=== PATIENT | female | born 1955 | race Caucasian/White ===

== ENCOUNTER 2016-09-03 10:49 | Inpatient (IN) | payer OTHER ==
[2016-09-03] MEDS ORDERED: ONDANSETRON 4 MG/2 ML VIAL IVPUSH ONE ×2 (13:06→16:33)
[2016-09-03] MEDS ORDERED: SODIUM CHLORIDE 1,000 ML IV STA ×2 (13:06→16:33)
--- NOTE | 2016-09-03 13:06 | PDOC ---
History of Present Illness - General History Source: Patient Exam Limitations: No Limitations - History of Present Illness Initial Comments: 09/03/16 13:11 The patient is a 61-kane-old woman with a significant past medical history of cerebral palsy, asthma, hypercholesterolemia and thyroid disease who presents to the emergency department via walk-in for further evaluation of persistent vomiting. No fever, chills, generalized weakness. No new foods. Patients states she suddenly started to vomit persistently for the past 2 days. She reports associated symptoms of epigastric discomfort and decreases po intake, secondary to emesis. She denies fever, chills, chest pain, shortness of breath, cough Allergies: Penicillin Past Surgical History: Left wrist and ankle fusion Social History: Former smoker (quit approximately 20 years ago). No ETOH and recreational drug use. Primary Care Physician: Dr. Alice Gooden [phone] <Juanita Araiza - Last Filed: 09/03/16 16:26> <Lexus Rajan - Last Filed: 09/04/16 09:40> - General Chief Complaint: Nausea/Vomiting Stated Complaint: VOMITING Time Seen by Provider: 09/03/16 13:03 Past History <Juanita Araiza - Last Filed: 09/03/16 16:26> - Past Medical History Asthma: Yes Thyroid Disease: Yes (TAKING SYNTHROID) Other medical history: CEREBRAL PALSY - Surgical History Orthopedic Surgery: Yes (LEFT WRIST & ANKLE FUSED) - Psycho/Social/Smoking Cessation Hx Anxiety: No Suicidal Ideation: No Smoking Status: No Smoking History: Never smoked Have you smoked in the past 12 months: No Number of Cigarettes Smoked Daily: 0 If you are a former smoker, when did you quit?: 20YRS AGO Information on smoking cessation initiated: No Hx Alcohol Use: No Drug/Substance Use Hx: No Substance Use Type: None Hx Substance Use Treatment: No <Lexus Rajan - Last Filed: 09/04/16 09:40> - Past Medical History Allergies/Adverse Reactions: Allergies Allergy/AdvReac Type Severity Reaction Status Date / Time Penicillins Allergy Severe Difficulty Verified 09/03/16 10:56 Breathing Home Medications: Ambulatory Orders Levothyroxine [Synthroid -] 100 mcg PO DAILY 03/24/13 Montelukast Na [Singulair -] 10 mg PO HS 03/24/13 Topiramate [Topamax] 50 mg PO BID 02/13/14 Albuterol Sulfate Inhaler - [Ventolin HFA Inhaler -] 1 - 2 inh PO Q4HWA PRN #1 09/26/15 Ondansetron [Zofran -] 4 mg PO TID PRN #21 tablet 09/03/16 Rosuvastatin Calcium [Crestor] 10 mg PO DAILY 09/03/16 Review of Systems - Review of Systems Able to Perform ROS?: Yes Comments:: 09/03/16 13:11 GENERAL/CONSTITUTIONAL: No fever or chills. No weakness. HEAD, EYES, EARS, NOSE AND THROAT: No change in vision. No ear pain or discharge. No sore throat. CARDIOVASCULAR: No chest pain or shortness of breath. RESPIRATORY: No cough, wheezing, or hemoptysis. GASTROINTESTINAL: Yes: Epigastric discomfort. +Nausea. +vomiting No diarrhea or constipation. GENITOURINARY: No dysuria, frequency, or change in urination. MUSCULOSKELETAL: No joint or muscle swelling or pain. No neck or back pain. SKIN: No rash NEUROLOGIC: No headache, vertigo, loss of consciousness, or change in strength/ sensation. ENDOCRINE: No increased thirst. No abnormal weight change. HEMATOLOGIC/LYMPHATIC: No anemia, easy bleeding, or history of blood clots. ALLERGIC/IMMUNOLOGIC: No hives or skin allergy. <Juanita Araiza - Last Filed: 09/03/16 16:26> *Physical Exam - Vital Signs Last Vital Signs Temp Pulse Resp BP Pulse Ox 97.9 F 106 H 18 134/104 98 09/03/16 10:55 09/03/16 10:55 09/03/16 10:55 09/03/16 10:55 09/03/16 10:55 - Physical Exam Comments: 09/03/16 13:11 GENERAL: Awake, alert, and fully oriented, in no acute distress HEAD: No signs of trauma EYES: PERRLA, EOMI, sclera anicteric, conjunctiva clear ENT: Auricles normal inspection, hearing grossly normal, nares patent, oropharynx clear without exudates. Dry mucosa NECK: Normal ROM, supple, no lymphadenopathy, JVD, or masses LUNGS: Breath sounds equal, clear to auscultation bilaterally. No wheezes, and no crackles HEART: Regular rate and rhythm, normal S1 and S2, no murmurs, rubs or gallops ABDOMEN: Soft, nontender, normoactive bowel sounds. No guarding, no rebound. No masses EXTREMITIES: Normal range of motion, no edema. No clubbing or cyanosis. No cords, erythema, or tenderness NEUROLOGICAL: Cranial nerves II through XII grossly intact. Normal speech, normal gait <Juanita Araiza - Last Filed: 09/03/16 16:26> - Vital Signs Last Vital Signs Temp Pulse Resp BP Pulse Ox 97.9 F 106 H 18 134/104 98 09/03/16 10:55 09/03/16 10:55 09/03/16 10:55 09/03/16 10:55 09/03/16 10:55 <Lexus Rajan - Last Filed: 09/04/16 09:40> ED Treatment Course - LABORATORY CBC & Chemistry Diagram: 09/03/16 13:06 09/03/16 13:06 - RADIOLOGY Radiograph Interpretation: 09/03/16 16:26 EXAM: CT/SPIRAL- RENAL-STONE CT IMPRESSION: Sequential axial images were obtained from the domes of the diaphragm through the symphysis pubis utilizing urinary tract calculi protocol. The lung bases are clear. There is no evidence of calcifications within the kidneys, ureters or urinary bladder suspicious for urinary tract calculi. There is no evidence of hydronephrosis or obstructive uropathy. No significant abnormalities of the liver, spleen, pancreas, or right adrenal gland were identified. There is a 1.8 cm nodule within the left adrenal that most likely represents a benign adenoma. The gallbladder is clear. There is no evidence of intra-abdominal, retroperitoneal or pelvic mass lesions, fluid collections or lymphadenopathy. There is no evidence of acute bony pathology. <Juanita Araiza - Last Filed: 09/03/16 16:26> - LABORATORY CBC & Chemistry Diagram: 09/04/16 06:15 09/04/16 06:15 <Lexus Rajan - Last Filed: 09/04/16 09:40> Medical Decision Making - Medical Decision Making 09/03/16 16:41 Patient was offered a PO challenge, was able to swallow some juice, but immediately felt nauseated. Unable to tolerate crackers. No acute findings on CT. D/w Dr. Garcia, covering Dr. Gooden, will place on observation. <Lexus Rajan - Last Filed: 09/04/16 09:40> *DC/Admit/Observation/Transfer <Juanita Araiza - Last Filed: 09/03/16 16:26> - Discharge Dispostion Admit: Yes <Lexus Rajan - Last Filed: 09/04/16 09:40> Diagnosis at time of Disposition: Nausea and vomiting Qualifiers: Vomiting type: unspecified Vomiting Intractability: non-intractable Qualified Code(s): R11.2 - Nausea with vomiting, unspecified - Discharge Dispostion Condition at time of disposition: Improved - Prescriptions - Referrals - Patient Instructions
[2016-09-03] MEDS ORDERED: ONDANSETRON 4 MG/2 ML VIAL ONE ×2 (13:14→16:39)
[2016-09-03 13:21] LABS: BASOPHIL 1.5 % (0-2.0); EOSINOPHIL 0.2 % (0-4.5); MCH 30.1 pg (25.7-33.7); MCHC 34.2 g/dl (32.0-36.0); MEAN CELL VOLUME 87.9 fl (80-96); MEAN PLT VOLUME 9.3 fl (7.5-11.1); NEUTROPHILS 85.9 % (42.8-82.8); PLATELET COUNT 204 K/MM3 (134-434); WHITE BLOOD COUNT 9.3 K/mm3 (4.0-10.0)
[2016-09-03 14:05] LABS: ALBUMIN 4.6 g/dl (3.4-5.0); ALK PHOS 109 U/L (45-117); ANION GAP 13 (8-16); BILIRUBIN,TOTAL 0.2 mg/dL (0.2-1.0); CALCIUM 9.3 mg/dL (8.5-10.1); CO2 24 mmol/L (21-32); CREATININE 0.8 mg/dL (0.55-1.02); GLUCOSE,RANDOM 106 mg/dL (74-106); SGOT/AST 14 U/L (15-37); SGPT/ALT 24 U/L (12-78); TOT PROT 7.9 g/dl (6.4-8.2)
[2016-09-03] MEDS ORDERED: ACETAMINOPHEN 1000 MG/100 ML VIAL (NON FORMULARY) IVPB ONE (14:46)
[2016-09-03] MEDS ORDERED: ACETAMINOPHEN INJECTION 100 ML IVPB ONE (14:51)
[2016-09-03 15:13] LABS: URINE APPEARANCE CLEAR; URINE BILIRUBIN NEGATIVE (NEGATIVE); URINE COLOR YELLOW; URINE GLUCOSE (UA) 1+ (NEGATIVE); URINE KETONE 2+ (NEGATIVE); URINE LEUK ESTERASE NEGATIVE (NEGATIVE); URINE NITRITE NEGATIVE (NEGATIVE); URINE UROBILINOGEN NEGATIVE E.U./dl (0.2-1.0)
[2016-09-03 15:22] LABS: URINE BLOOD 2+ (NEGATIVE); URINE PROTEIN 2+ (NEGATIVE)
[2016-09-03 15:27] LABS: URINE MUCUS RARE; URINE RBC 13 /hpf (0-3); URINE WBC 4 /hpf (3-5)
[2016-09-03] MEDS ORDERED: ALBUTEROL SO4 6.7 GM HFA INHALER IH PRN (17:12)
[2016-09-03] MEDS ORDERED: ONDANSETRON 4 MG/2 ML VIAL IVPUSH PRN (17:13)
[2016-09-03] MEDS ORDERED: PANTOPRAZOLE SODIUM 40 MG in SODIUM CHLORIDE 100 ML IVPB SCH (17:15)
[2016-09-03] MEDS ORDERED: PANTOPRAZOLE SODIUM 100 ML IVPB ONE (18:29)
[2016-09-03] MEDS: PANTOPRAZOLE SODIUM 40 MG/100 ML PRE-DOCKED IVPB SCH (18:32)
[2016-09-03] MEDS: ACETAMINOPHEN 325 MG TABLET (FP) PO PRN (19:53)
[2016-09-03] MEDS: D5-1/2NS+10 MEQ KCL - 1,000 ML IV SCH (19:56)
[2016-09-03 20:06] VITALS: BMI 28.1
[2016-09-03] MEDS ORDERED: PATIENT'S OWN MEDICATION (NON-FORMULARY) (Topiramate [Topamax] 50 MG) PO SCH (22:00)
[2016-09-03] MEDS: TOPIRAMATE 25 MG TABLET (FP) PO SCH (22:31)
[2016-09-03] MEDS: MONTELUKAST NA 10 MG TABLET PO SCH (22:31)
[2016-09-04] MEDS: ACETAMINOPHEN 325 MG TABLET (FP) PO PRN ×2 (02:49→09:11)
[2016-09-04] MEDS: LEVOTHYROXINE NA 100 MCG TABLET (FP) PO SCH (06:20)
[2016-09-04] MEDS: D5-1/2NS+10 MEQ KCL - 1,000 ML IV SCH ×2 (06:21→19:00)
[2016-09-04 07:32] LABS: BASOPHIL 0.4 % (0-2.0); EOSINOPHIL 0.6 % (0-4.5); MCHC 34.1 g/dl (32.0-36.0); MEAN CELL VOLUME 88.1 fl (80-96); MEAN PLT VOLUME 9.7 fl (7.5-11.1); NEUTROPHILS 63.7 % (42.8-82.8); PLATELET COUNT 187 K/MM3 (134-434); RDW 12.8 % (11.6-15.6); WHITE BLOOD COUNT 9.8 K/mm3 (4.0-10.0)
[2016-09-04 08:52] LABS: ALBUMIN 3.7 g/dl (3.4-5.0); ALK PHOS 80 U/L (45-117); ANION GAP 13 (8-16); BILIRUBIN,TOTAL 0.4 mg/dL (0.2-1.0); CALCIUM 8.4 mg/dL (8.5-10.1); CO2 22 mmol/L (21-32); CREATININE 0.7 mg/dL (0.55-1.02); GLUCOSE,RANDOM 102 mg/dL (74-106); MAGNESIUM 2.1 mg/dL (1.8-2.4); SGOT/AST 13 U/L (15-37); SGPT/ALT 19 U/L (12-78); TOT PROT 6.3 g/dl (6.4-8.2)
[2016-09-04] MEDS: TOPIRAMATE 25 MG TABLET (FP) PO SCH ×2 (09:10→21:36)
[2016-09-04] MEDS: PANTOPRAZOLE SODIUM 40 MG/100 ML PRE-DOCKED IVPB SCH (09:12)
--- NOTE | 2016-09-04 11:53 | HP ---
Admitting History and Physical - Primary Care Physician PCP: Alice Gooden - Admission Chief Complaint: nausea, vomitig, headaches History of Present Illness: ER HISTORY - History of Present Illness Initial Comments: 09/03/16 13:11 The patient is a 61-year-old woman with a significant past medical history of cerebral palsy, asthma, hypercholesterolemia and thyroid disease who presents to the emergency department via walk-in for further evaluation of persistent vomiting. No fever, chills, generalized weakness. No new foods. Patients states she suddenly started to vomit persistently for the past 2 days. She reports associated symptoms of epigastric discomfort and decreases po intake, secondary to emesis. She denies fever, chills, chest pain, shortness of breath, cough Allergies: Penicillin Past Surgical History: Left wrist and ankle fusion Social History: Former smoker (quit approximately 20 years ago). No ETOH and recreational drug use. Primary Care Physician: Dr. Alice Gooden [phone] PT examined by me in the floors -- has a severe headache-- throbbing right side of forehead- has nausea . 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) Cardiovascular: Yes: Hyperlipdemia Pulmonary: Yes: Asthma - Smoking History Smoking history: Never smoked Have you smoked in the past 12 months: No Aproximately how many cigarettes per day: 0 If you are a former smoker, when did you quit?: 20YRS AGO - Alcohol/Substance Use Hx Alcohol Use: No - Social History ADL: Independent History of Recent Travel: No Home Medications - Allergies Allergies/Adverse Reactions: Allergies Allergy/AdvReac Type Severity Reaction Status Date / Time Penicillins Allergy Severe Difficulty Verified 09/03/16 10:56 Breathing - Home Medications Home Medications: Ambulatory Orders Levothyroxine [Synthroid -] 100 mcg PO DAILY 03/24/13 Montelukast Na [Singulair -] 10 mg PO HS 03/24/13 Topiramate [Topamax] 50 mg PO BID 02/13/14 Albuterol Sulfate Inhaler - [Ventolin HFA Inhaler -] 1 - 2 inh PO Q4HWA PRN #1 09/26/15 Ondansetron [Zofran -] 4 mg PO TID PRN #21 tablet 09/03/16 Rosuvastatin Calcium [Crestor] 10 mg PO DAILY 09/03/16 Review of Systems - Review of Systems Constitutional: denies: Chills, Fever, Loss of Appetite Eyes: denies: Blurred Vision, Eye Pain, Floaters Gastrointestinal: reports: Nausea, Vomiting. denies: Abdominal Pain Neurological: reports: Headache. denies: Dizziness, Weakness Physical Examination Vital Signs: Vital Signs Temperature 98.6 F 09/04/16 09:07 Pulse Rate 94 H 09/04/16 09:07 Respiratory Rate 20 09/04/16 09:07 Blood Pressure 131/79 09/04/16 09:07 O2 Sat by Pulse Oximetry (%) 98 09/04/16 04:37 Constitutional: Yes: No Distress Cardiovascular: Yes: Regular Rate and Rhythm Respiratory: Yes: CTA Bilaterally Gastrointestinal: Yes: Normal Bowel Sounds, Soft. No: Distention, Tenderness Edema: No Labs: CBC, BMP 09/04/16 06:15 09/04/16 06:15 Imaging - Results Cat Scan: Report Reviewed EKG: Image Reviewed (NSR) Problem List - Problems (1) Nausea and vomiting Code(s): R11.2 - NAUSEA WITH VOMITING, UNSPECIFIED Qualifiers: Vomiting type: unspecified Vomiting Intractability: non-intractable Qualified Code(s): R11.2 - Nausea with vomiting, unspecified (2) Migraine Code(s): G43.909 - MIGRAINE, UNSP, NOT INTRACTABLE, WITHOUT STATUS MIGRAINOSUS Assessment/Plan PLAN -- CT head negative for acute changes -- iv fluids -- monitor lytes -- Neurology evaluation -- clear liquids -- DVT prophylaxis-- Lovenox -- on Topomax
[2016-09-04] MEDS: ACETAMINOPHEN/CAFFEINE/BUTALBITAL 1 TAB PO PRN (13:47)
--- NOTE | 2016-09-04 14:03 | CONSULT ---
Consult Consult Specialty:: Neurology Reason for Consultation:: Headache - History of Present Illness Chief Complaint: Headache History of Present Illness: 61 year old woman with history chronic migraine (currently on topamax 50 bid and well controlled, patient of Dr Ryan), cerebral palsy with chronic left arm weakness, asthma and hypercholesterolemia, presents to the emergency due to vomiting. Patient reports a two day history of vomiting, which is currently being investigated. Due to vomiting, she was unable to keep down her topamax and notes new onset headache. Reports right sided, sharp, over the right eye, associated with nausea, vomiting, photo/phonophobia. Typical of her usual headache. 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) Pulmonary: Yes: Asthma - Smoking History Smoking history: Never smoked Have you smoked in the past 12 months: No Aproximately how many cigarettes per day: 0 If you are a former smoker, when did you quit?: 20YRS AGO - Social History ADL: Independent History of Recent Travel: No Home Medications - Allergies Allergies/Adverse Reactions: Allergies Allergy/AdvReac Type Severity Reaction Status Date / Time Penicillins Allergy Severe Difficulty Verified 09/03/16 10:56 Breathing - Home Medications Home Medications: Ambulatory Orders Levothyroxine [Synthroid -] 100 mcg PO DAILY 03/24/13 Montelukast Na [Singulair -] 10 mg PO HS 03/24/13 Topiramate [Topamax] 50 mg PO BID 02/13/14 Albuterol Sulfate Inhaler - [Ventolin HFA Inhaler -] 1 - 2 inh PO Q4HWA PRN #1 09/26/15 Ondansetron [Zofran -] 4 mg PO TID PRN #21 tablet 09/03/16 Rosuvastatin Calcium [Crestor] 10 mg PO DAILY 09/03/16 Review of Systems - Review of Systems Constitutional: reports: Loss of Appetite Eyes: reports: No Symptoms HENT: reports: No Symptoms Neck: reports: No Symptoms Cardiovascular: reports: No Symptoms Respiratory: reports: No Symptoms Gastrointestinal: reports: Vomiting Neurological: reports: Headache Physical Exam Vital Signs: Vital Signs Temperature 98.6 F 09/04/16 09:07 Pulse Rate 94 H 09/04/16 09:07 Respiratory Rate 20 09/04/16 09:07 Blood Pressure 131/79 09/04/16 09:07 O2 Sat by Pulse Oximetry (%) 98 09/04/16 04:37 Constitutional: Yes: Anxious Eyes: Yes: Conjunctiva Clear, EOM Intact HENT: Yes: Atraumatic, Normocephalic Neurological: Yes: Alert, Oriented, Cran Nerves II-XII Intact (chronic left arm weakness, no drift in remainder) Labs: CBC, BMP 09/04/16 06:15 09/04/16 06:15 Problem List - Problems (1) Cerebral palsy Code(s): G80.9 - CEREBRAL PALSY, UNSPECIFIED (2) Nausea and vomiting Code(s): R11.2 - NAUSEA WITH VOMITING, UNSPECIFIED Qualifiers: Vomiting type: unspecified Vomiting Intractability: non-intractable Qualified Code(s): R11.2 - Nausea with vomiting, unspecified (3) Knee injuries Code(s): S89.90XA - UNSPECIFIED INJURY OF UNSPECIFIED LOWER LEG, INIT ENCNTR Assessment/Plan 61 year old woman with history chronic migraine (currently on topamax 50 bid and well controlled, patient of Dr Gorman), cerebral palsy with chronic left arm weakness, asthma and hypercholesterolemia, presents to the emergency due to vomiting. Patient reports a two day history of vomiting, which is currently being investigated. Due to vomiting, she was unable to keep down her topamax and notes new onset headache. Reports right sided, sharp, over the right eye, associated with nausea, vomiting, photo/phonophobia. Typical of her usual headache. Impression Migraine without aura, exacerbated by underlying illness CT head results pending Patient received fiorocet Would continue topamax at current dose Patient would like to be followed by Dr Gorman her outpatient neurologist starting Tuesday
[2016-09-04] MEDS: ROSUVASTATIN CA 10 MG TABLET (FP) PO SCH (21:36)
[2016-09-04] MEDS: MONTELUKAST NA 10 MG TABLET PO SCH (21:36)
[2016-09-04] MEDS: MAG HYDROX/AL HYDROX/SIMETH 30 ML UNIT-DOSE CUP PO PRN (22:16)
[2016-09-05] MEDS: D5-1/2NS+10 MEQ KCL - 1,000 ML IV SCH ×3 (05:39→17:54)
[2016-09-05] MEDS: LEVOTHYROXINE NA 100 MCG TABLET (FP) PO SCH (06:08)
[2016-09-05] MEDS: ENOXAPARIN NA (PORCINE) 40 MG/0.4 ML DISP.SYRIN SQ SCH (09:04)
[2016-09-05] MEDS: ACETAMINOPHEN/CAFFEINE/BUTALBITAL 1 TAB PO PRN ×2 (09:04→12:58)
[2016-09-05] MEDS: PANTOPRAZOLE SODIUM 40 MG/100 ML PRE-DOCKED IVPB SCH (09:04)
[2016-09-05] MEDS: TOPIRAMATE 25 MG TABLET (FP) PO SCH ×2 (09:04→21:44)
--- NOTE | 2016-09-05 10:16 | PN ---
Progress Note, Physician Chief Complaint: still nauseous, has persistent headaches no abd pain - Current Medication List Current Medications: Active Medications Acetaminophen (Tylenol -) 650 mg PO Q6H PRN PRN Reason: FEVER OR PAIN Last Admin: 09/04/16 09:11 Dose: 650 mg Acetaminophen/Butalbital/Caffeine (Fioricet -) 1 tablet PO Q4H PRN PRN Reason: FEVER OR PAIN Last Admin: 09/05/16 09:04 Dose: 1 tablet Al Hydroxide/Mg Hydroxide (Mylanta Oral Suspension -) 15 ml PO Q6H PRN PRN Reason: INDIGESTION Last Admin: 09/04/16 22:16 Dose: 15 ml Albuterol Sulfate (Ventolin Hfa Inhaler -) 2 puff IH Q4H PRN PRN Reason: ASTHMA Enoxaparin Sodium (Lovenox -) 40 mg SQ DAILY [facility] Last Admin: 09/05/16 09:04 Dose: 40 mg Potassium Chloride/Dextrose/Sod Cl (D5-1/2ns+10 Meq Kcl -) 1,000 mls @ 100 mls/ hr IV ASDIR [facility] Last Admin: 09/05/16 05:39 Dose: 100 mls/hr Levothyroxine Sodium (Synthroid -) 100 mcg PO DAILY@0700 [facility] Last Admin: 09/05/16 06:08 Dose: 100 mcg Montelukast Sodium (Singulair -) 10 mg PO [facility] Last Admin: 09/04/16 21:36 Dose: 10 mg Pantoprazole Sodium (Protonix 40mg Ivpb (Pre-Docked)) 40 mg IVPB DAILY [facility] Last Admin: 09/05/16 09:04 Dose: 40 mg Rosuvastatin Calcium (Crestor -) 10 mg PO [facility] Last Admin: 09/04/16 21:36 Dose: 10 mg Topiramate (Topamax -) 50 mg PO BID [facility] Last Admin: 09/05/16 09:04 Dose: 50 mg - Objective Vital Signs: Vital Signs Temperature 98.6 F 09/05/16 09:02 Pulse Rate 81 09/05/16 09:02 Respiratory Rate 20 09/05/16 09:02 Blood Pressure 127/74 09/05/16 09:02 O2 Sat by Pulse Oximetry (%) 93 L 09/04/16 20:00 Constitutional: Yes: No Distress Cardiovascular: Yes: Regular Rate and Rhythm Respiratory: Yes: CTA Bilaterally Gastrointestinal: Yes: Normal Bowel Sounds, Soft. No: Distention, Tenderness Edema: No Labs: CBC, BMP 09/04/16 06:15 09/04/16 06:15 Problem List - Problems (1) Migraine Code(s): G43.909 - MIGRAINE, UNSP, NOT INTRACTABLE, WITHOUT STATUS MIGRAINOSUS (2) Nausea and vomiting Code(s): R11.2 - NAUSEA WITH VOMITING, UNSPECIFIED Qualifiers: Vomiting type: unspecified Vomiting Intractability: non-intractable Qualified Code(s): R11.2 - Nausea with vomiting, unspecified Assessment/Plan PLAN -- CT head negative for acute changes -- iv fluids -- continue -- advance diet -- monitor lytes -- Neurology evaluation appreciated -- full liquids -- DVT prophylaxis-- Lovenox -- pt still needs iv fluids to prevent dehydration as she continues to be nauseous and has headaches -- on Topomax
[2016-09-05] MEDS ORDERED: TOPIRAMATE 25 MG TABLET (FP) PO ONE (12:33)
--- NOTE | 2016-09-05 12:37 | PN ---
Progress Note (short form) - Note Progress Note: History of Present Illness: 09/05 Patient seen and examined Reports relief from fiorcet yesterday, noting breakthrough pain today CT head complete chronic right frontal stroke, findings discussed with patient 61 year old woman with history chronic migraine (currently on topamax 50 bid and well controlled, patient of Dr Ryan), cerebral palsy with chronic left arm weakness, asthma and hypercholesterolemia, presents to the emergency due to vomiting. Patient reports a two day history of vomiting, which is currently being investigated. Due to vomiting, she was unable to keep down her topamax and notes new onset headache. Reports right sided, sharp, over the right eye, associated with nausea, vomiting, photo/phonophobia. Typical of her usual headache. 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) Pulmonary: Yes: Asthma - Smoking History Smoking history: Never smoked Have you smoked in the past 12 months: No Aproximately how many cigarettes per day: 0 If you are a former smoker, when did you quit?: 20YRS AGO - Social History ADL: Independent History of Recent Travel: No Home Medications - Allergies Allergies/Adverse Reactions: Allergies Allergy/AdvReac Type Severity Reaction Status Date / Time Penicillins Allergy Severe Difficulty Verified 09/03/16 10:56 Breathing - Home Medications Home Medications: Ambulatory Orders Levothyroxine [Synthroid -] 100 mcg PO DAILY 03/24/13 Montelukast Na [Singulair -] 10 mg PO HS 03/24/13 Topiramate [Topamax] 50 mg PO BID 02/13/14 Albuterol Sulfate Inhaler - [Ventolin HFA Inhaler -] 1 - 2 inh PO Q4HWA PRN #1 09/26/15 Ondansetron [Zofran -] 4 mg PO TID PRN #21 tablet 09/03/16 Rosuvastatin Calcium [Crestor] 10 mg PO DAILY 09/03/16 Review of Systems - Review of Systems Constitutional: reports: Loss of Appetite Eyes: reports: No Symptoms HENT: reports: No Symptoms Neck: reports: No Symptoms Cardiovascular: reports: No Symptoms Respiratory: reports: No Symptoms Gastrointestinal: reports: Vomiting Neurological: reports: Headache Physical Exam Constitutional: Yes: Anxious Eyes: Yes: Conjunctiva Clear, EOM Intact HENT: Yes: Atraumatic, Normocephalic Neurological: Yes: Alert, Oriented, Cran Nerves II-XII Intact (chronic left arm weakness, no drift in remainder) Problem List - Problems (1) Cerebral palsy Code(s): G80.9 - CEREBRAL PALSY, UNSPECIFIED (2) Nausea and vomiting Code(s): R11.2 - NAUSEA WITH VOMITING, UNSPECIFIED Qualifiers: Vomiting type: unspecified Vomiting Intractability: non-intractable Qualified Code(s): R11.2 - Nausea with vomiting, unspecified (3) Knee injuries Code(s): S89.90XA - UNSPECIFIED INJURY OF UNSPECIFIED LOWER LEG, INIT ENCNTR Assessment/Plan 61 year old woman with history chronic migraine (currently on topamax 50 bid and well controlled, patient of Dr Gorman), cerebral palsy with chronic left arm weakness, asthma and hypercholesterolemia, presents to the emergency due to vomiting. Neurology consulted for headache. CT head complete chronic right frontal stroke Impression Migraine without aura, exacerbated by underlying illness Patient received fiorocet, some improvement yesterday Will give x1 dose topamax 25 mg now Would continue topamax at current dose 50 mg bid Patient would like her outpatient neurologist to be contracted for further care starting tuesday, Dr Gorman Problem List - Problems (1) Cerebral palsy Code(s): G80.9 - CEREBRAL PALSY, UNSPECIFIED (2) Nausea and vomiting Code(s): R11.2 - NAUSEA WITH VOMITING, UNSPECIFIED Qualifiers: Vomiting type: unspecified Vomiting Intractability: non-intractable Qualified Code(s): R11.2 - Nausea with vomiting, unspecified (3) Knee injuries Code(s): S89.90XA - UNSPECIFIED INJURY OF UNSPECIFIED LOWER LEG, INIT ENCNTR
[2016-09-05] MEDS: MAG HYDROX/AL HYDROX/SIMETH 30 ML UNIT-DOSE CUP PO PRN ×2 (16:00→22:02)
[2016-09-05] MEDS: ROSUVASTATIN CA 10 MG TABLET (FP) PO SCH (21:44)
[2016-09-05] MEDS: MONTELUKAST NA 10 MG TABLET PO SCH (21:44)
[2016-09-06] MEDS: LEVOTHYROXINE NA 100 MCG TABLET (FP) PO SCH (06:15)
[2016-09-06] MEDS: D5-1/2NS+10 MEQ KCL - 1,000 ML IV SCH (06:26)
--- NOTE | 2016-09-06 08:39 | DS ---
Physical Examination Vital Signs: Vital Signs Temperature 98.0 F 09/06/16 06:00 Pulse Rate 69 09/06/16 06:00 Respiratory Rate 20 09/06/16 06:00 Blood Pressure 124/71 09/06/16 06:00 O2 Sat by Pulse Oximetry (%) 94 L 09/05/16 20:00 <Candice Garcia - Last Filed: 09/06/16 08:38> Vital Signs: Vital Signs Temperature 98.0 F 09/06/16 06:00 Pulse Rate 69 09/06/16 06:00 Respiratory Rate 20 09/06/16 06:00 Blood Pressure 124/71 09/06/16 06:00 O2 Sat by Pulse Oximetry (%) 94 L 09/05/16 20:00 Findings/Remarks: Patient feels well. No complaints today. Denies headache. Chart reviewed. Eating well. Constitutional: Yes: No Distress Eyes: Yes: Conjunctiva Clear HENT: Yes: WNL Neck: Yes: Supple Cardiovascular: Yes: Regular Rate and Rhythm Respiratory: Yes: CTA Bilaterally Gastrointestinal: Yes: Normal Bowel Sounds, Soft Edema: No Neurological: Yes: Alert Psychiatric: Yes: Alert Labs: CBC, BMP 09/06/16 07:25 <Juanita Araiza - Last Filed: 09/06/16 10:17> Discharge Summary Reason For Visit: NAUSE,VOMITING Current Active Problems Migraine (Acute) Nausea and vomiting (Acute) - Home Medications Comprehensive Discharge Medication List: Ambulatory Orders Levothyroxine [Synthroid -] 100 mcg PO DAILY 03/24/13 Montelukast Na [Singulair -] 10 mg PO HS 03/24/13 Topiramate [Topamax] 50 mg PO BID 02/13/14 Albuterol Sulfate Inhaler - [Ventolin HFA Inhaler -] 1 - 2 inh PO Q4HWA PRN #1 09/26/15 Ondansetron [Zofran -] 4 mg PO TID PRN #21 tablet 09/03/16 Rosuvastatin Calcium [Crestor] 10 mg PO DAILY 09/03/16 Acetaminophen [Tylenol .Regular Strength -] 650 mg PO Q6H PRN #0 tablet Acetaminophen/Caffeine/Butalb [Fioricet -] 1 tablet PO Q4H PRN #30 tablet MDD 3 09/06/16 <Candice Garcia - Last Filed: 09/06/16 08:38> Current Active Problems Migraine (Acute) Nausea and vomiting (Acute) Hospital Course: The patient was admitted for vomiting and dehydration. Treated with IV Fluids. Neurology also followed for migraines. CT of the Head was negative. Now much better. Will discharge home today. Discussed with patient, who is in agreement. Also discussed with nursing staff. Medications reconciled. Follow up in office- in two weeks. Patient in agreement Documentation prepared by Juanita Araiza, acting as a medical unit secretary for Candice Garcia MD. - Home Medications Comprehensive Discharge Medication List: Ambulatory Orders Levothyroxine [Synthroid -] 100 mcg PO DAILY 03/24/13 Montelukast Na [Singulair -] 10 mg PO HS 03/24/13 Topiramate [Topamax] 50 mg PO BID 02/13/14 Albuterol Sulfate Inhaler - [Ventolin HFA Inhaler -] 1 - 2 inh PO Q4HWA PRN #1 09/26/15 Ondansetron [Zofran -] 4 mg PO TID PRN #21 tablet 09/03/16 Rosuvastatin Calcium [Crestor] 10 mg PO DAILY 09/03/16 Acetaminophen [Tylenol .Regular Strength -] 650 mg PO Q6H PRN #0 tablet Acetaminophen/Caffeine/Butalb [Fioricet -] 1 tablet PO Q4H PRN #30 tablet MDD 3 09/06/16 <Juanita Araiza - Last Filed: 09/06/16 10:17> Condition: Improved - Instructions Referrals: Alice Gooden MD [Primary Care Provider] -
[2016-09-06 08:42] LABS: CALCIUM 8.7 mg/dL (8.5-10.1); CREATININE 0.7 mg/dL (0.55-1.02); MAGNESIUM 2.3 mg/dL (1.8-2.4)
[2016-09-06] MEDS: TOPIRAMATE 25 MG TABLET (FP) PO SCH (09:37)
[2016-09-06] MEDS: ENOXAPARIN NA (PORCINE) 40 MG/0.4 ML DISP.SYRIN SQ SCH (09:37)
[2016-09-06] MEDS: PANTOPRAZOLE SODIUM 40 MG/100 ML PRE-DOCKED IVPB SCH (09:38)
[2016-09-06 10:30] VITALS: BP 130/78; PULSE 93; TEMP 97.3
== END 2016-09-06 10:53 | disposition home or self-care (01) | DRG 103 ==
LOC: JER 10:49 → JERBED 16:44 → J5S 18:35 → OBSVTOIN 09-05 10:42
PROVIDERS: ADMIT Internal Medicine; ATTEND Internal Medicine
DX: G43.909 Migraine, unspecified, not intractable, without status migrainosus (principal); E86.0 Dehydration; R11.10 Vomiting, unspecified; H53.141 Visual discomfort, right eye; J45.909 Unspecified asthma, uncomplicated; G80.9 Cerebral palsy, unspecified; E78.00 Pure hypercholesterolemia, unspecified
CPT/HCPCS: 36415; 70450-TC; 74176; 80048; 80053; 81003; 81015; 83690; 83735; 85025; 99283-25; G0378

== ENCOUNTER 2018-12-30 23:52 | Emergency (ER) | payer OTHER ==
[2018-12-30 23:59] VITALS: PULSE 87; TEMP 97.7; BMI 28.9
[2018-12-31] MEDS ORDERED: CYCLOBENZAPRINE HCL 10 MG TABLET (FP) ONE (00:16)
[2018-12-31] MEDS ORDERED: KETOROLAC TROMETHAMINE 60 MG/2 ML VIAL ONE (00:16)
--- NOTE | 2018-12-31 00:16 | PDOC ---
History of Present Illness - General Chief Complaint: Pain Stated Complaint: LT ARM PAIN Time Seen by Provider: 12/31/18 00:16 History Source: Patient Exam Limitations: No Limitations - History of Present Illness Initial Comments: 12/31/18 00:18 This is a 63-year-old female who comes in complaining of pain and spasm in her left arm. Patient said she didn't injured it and her primary care doctor. However he did ultrasound and ruled out DVT but did not give her anything for the pain or further work it up. Patient developed an increased pain however she is not taking anything for the pain either. Chills, numbness or weakness of the left arm. Allergies: as per nursing notes Past Medical History: none Social history: Lives with family. No smoking. No alcohol. No illicit drugs. Surgical history: None General: No fevers or chills, no weakness, no weight loss HEENT: No change in vision. No sore throat,. No ear pain CardioVascular: no chest discomfort. No shortness of breath Respiratory:No cough, or wheezing. Gastrointestinal: no nausea, vomiting, diarrhea or constipation, No rectal bleeding Genitourinary: No dysuria, hematuria, or frequency Musculoskeletal: left arm pain Neurologic: No headache, vertigo, dizziness or loss of consciousness Psychiatric: nor depression Skin: No rashes or easy bruising Endocrine: no increased thirst or abnormal weight change Allergic: no skin or latex allergy All other systems reviewed and normal GENERAL: The patient is awake, alert, and fully oriented, in no acute distress. HEAD: Normal with no signs of trauma. EYES: Pupils equal, round and reactive to light, extraocular movements intact, sclera anicteric, conjunctiva clear. EXTREMITIES:atraumatic, left upper extremity there is some spasm of the muscle and decreased range of motion secondary to discomfort in the arm. NEUROLOGICAL: Normal speech, normal gait. PSYCH: Normal mood, normal affect. SKIN: Warm, Dry, normal turgor, no rashes or lesions noted. Assessment and plan: This is 63-year-old female comes in complaining of left arm discomfort times approximately one week. Patient was given some Toradol for the pain and Flexeril for a muscle relaxant and told to follow-up with cady Ramos after the holidays on Tuesday12/31/18 06:54 Past History - Past Medical History Allergies/Adverse Reactions: Allergies Allergy/AdvReac Type Severity Reaction Status Date / Time Penicillins Allergy Severe Difficulty Verified 09/03/16 10:56 Breathing Home Medications: Ambulatory Orders Levothyroxine [Synthroid -] 100 mcg PO DAILY 03/24/13 Montelukast Na [Singulair -] 10 mg PO HS 03/24/13 Topiramate [Topamax] 50 mg PO BID 02/13/14 Albuterol Sulfate Inhaler - [Ventolin HFA Inhaler -] 1 - 2 inh PO Q4HWA PRN #1 09/26/15 Ondansetron [Zofran -] 4 mg PO TID PRN #21 tablet 09/03/16 Rosuvastatin Calcium [Crestor] 10 mg PO DAILY 09/03/16 Acetaminophen [Tylenol .Regular Strength -] 650 mg PO Q6H PRN #0 tablet Acetaminophen/Caffeine/Butalb [Fioricet -] 1 tablet PO Q4H PRN #30 tablet MDD 3 09/06/16 Cyclobenzaprine HCl [Flexeril 10 mg] 10 mg PO TID PRN #21 tablet 12/31/18 Asthma: Yes COPD: No Thyroid Disease: Yes (TAKING SYNTHROID) - Surgical History Orthopedic Surgery: Yes (LEFT WRIST & ANKLE FUSED) - Suicide/Smoking/Psychosocial Hx Smoking Status: No Smoking History: Former smoker Have you smoked in the past 12 months: No Number of Cigarettes Smoked Daily: 0 If you are a former smoker, when did you quit?: 20YRS AGO Information on smoking cessation initiated: No Hx Alcohol Use: No Drug/Substance Use Hx: No Substance Use Type: None Hx Substance Use Treatment: No *Physical Exam - Vital Signs Last Vital Signs Temp Pulse Resp BP Pulse Ox 97.7 F 87 16 177/101 H 97 12/30/18 23:55 12/30/18 23:55 12/30/18 23:55 12/30/18 23:55 12/30/18 23:55 *DC/Admit/Observation/Transfer Diagnosis at time of Disposition: Left arm pain - Discharge Dispostion Disposition: HOME Condition at time of disposition: Stable Decision to Admit order: No - Prescriptions Prescriptions: Cyclobenzaprine HCl [Flexeril 10 mg] 10 mg PO TID PRN #21 tablet PRN Reason: Muscle Spasms - Referrals Referrals: Candice Garcia MD [Primary Care Provider] - - Patient Instructions Additional Instructions: For the pain take ibuprofen or Aleve as directed on the bottle. In addition to that for the muscle spasm U can take Flexeril one tablet as often as 3 times a day. However note that it will make you drowsy so do not take it if you need to drive, go to work or do anything that requires her concentration. Return to the emergency department immediately with ANY new, persistent or worsening symptoms. Continue any medications as previously prescribed by your physician. You should follow up with your primary doctor as soon as possible regarding today's emergency department visit. . Please make sure your doctor reviews the results of your emergency evaluation. Thank you for coming to the Emergency Department today for your care. It was a pleasure to see you today. Please note that your evaluation is INCOMPLETE until you follow-up with your doctor. - Post Discharge Activity
[2018-12-31] MEDS ORDERED: KETOROLAC TROMETHAMINE 60 MG/2 ML VIAL IM ONE (00:17)
[2018-12-31] MEDS ORDERED: CYCLOBENZAPRINE HCL 10 MG TABLET (FP) PO ONE (00:17)
[2018-12-31 00:30] VITALS: BP 160/103
== END 2018-12-31 00:30 | disposition home or self-care (01) ==
LOC: FER 23:52
PROC: 3E0233Z Introduction of Anti-inflammatory into Muscle, Percutaneous Approach (ICD-10-PCS; principal; 2018-12-30)
DX: M25.572 Pain in left ankle and joints of left foot (principal); J45.909 Unspecified asthma, uncomplicated; E03.9 Hypothyroidism, unspecified; Z87.891 Personal history of nicotine dependence
CPT/HCPCS: 99282-25

== ENCOUNTER 2019-06-22 19:29 | Emergency (ER) | payer OTHER ==
[2019-06-22 19:47] VITALS: TEMP 97.6; BMI 24.3
[2019-06-22] MEDS ORDERED: morphine CARPU-JECT 4 MG/1 ML DISP.SYRIN IVPUSH ONE ×2 (20:31→23:13)
[2019-06-22] MEDS ORDERED: morphine SULFATE 4 MG/ML VIAL ONE ×2 (20:33→23:30)
--- NOTE | 2019-06-22 21:10 | PDOC ---
History of Present Illness <Gale Pulido - Last Filed: 06/23/19 01:44> - History of Present Illness Initial Comments: Ms. Rivera is a 64 y/o female with PMH significant for cerebral palsy ( ambulatory and A&Ox3 and verbal at baseline), hypothyroidism, HLD, presenting today s/p fall. Reports that she fell at a school cafeteria during a bingo game around 7pm today. Denies heart palpitations. Unsure if any LOC. Unsure if head trauma, but bystanders report that she may have hit her head. Reports that she landed on her left side. Currently reports left mid-arm pain. Reports mild nausea. Per EMS and family, she appeared pale with a low BP in the 80's briefly before returning to her baseline minutes later. Denies chest pain, headache, neck pain, shortness of breath, abdominal pain, leg pain. Denies vision changes. Denies numbness, tingling, or weakness of the left arm and hand. Ortho: Dr. Tyshawn Cadet <Vivek Santos - Last Filed: 06/23/19 03:25> - General Chief Complaint: Injury Stated Complaint: FALL Time Seen by Provider: 06/22/19 20:17 Past History <Gale Pulido - Last Filed: 06/23/19 01:44> - Past Medical History Asthma: Yes COPD: No Thyroid Disease: Yes (TAKING SYNTHROID) - Surgical History Orthopedic Surgery: Yes (LEFT WRIST & ANKLE FUSED) - Psycho Social/Smoking Cessation Hx Smoking Status: No Smoking History: Never smoked Have you smoked in the past 12 months: No Number of Cigarettes Smoked Daily: 0 If you are a former smoker, when did you quit?: 20YRS AGO Information on smoking cessation initiated: No Hx Alcohol Use: No Drug/Substance Use Hx: No Substance Use Type: None Hx Substance Use Treatment: No <Vivek Santos - Last Filed: 06/23/19 03:25> - Past Medical History Allergies/Adverse Reactions: Allergies Allergy/AdvReac Type Severity Reaction Status Date / Time Penicillins Allergy Severe Difficulty Verified 06/22/19 19:45 Breathing Home Medications: Ambulatory Orders Levothyroxine [Synthroid -] 100 mcg PO DAILY 03/24/13 Montelukast Na [Singulair -] 10 mg PO HS 08/17/13 Topiramate [Topamax] 50 mg PO BID 02/13/14 Albuterol Sulfate Inhaler - [Ventolin HFA Inhaler -] 1 - 2 inh PO Q4HWA PRN #1 09/26/15 Rosuvastatin Calcium [Crestor] 10 mg PO DAILY 09/03/16 Acetaminophen [Tylenol .Regular Strength -] 650 mg PO Q6H PRN #0 tablet Acetaminophen/Caffeine/Butalb [Fioricet -] 1 tablet PO Q4H PRN #30 tablet MDD 3 09/06/16 Cyclobenzaprine HCl [Flexeril 10 mg] 10 mg PO TID PRN #21 tablet 12/31/18 Pramipexole Dihydrochloride [Mirapex -] 0.5 mg PO HS 06/22/19 Oxycodone HCl/Acetaminophen [Percocet 5-325 mg Tablet] 2 tab PO Q4H PRN #20 tablet MDD 6 06/23/19 Review of Systems - Review of Systems Comments:: GENERAL/CONSTITUTIONAL: No fever or chills. No weakness._ HEAD, EYES, EARS, NOSE AND THROAT: No change in vision. No change in hearing. No sore throat._ CARDIOVASCULAR: No chest pain or shortness of breath_ RESPIRATORY: Denies cough, hemoptysis_ GASTROINTESTINAL: Reports nausea. No vomiting, diarrhea or constipation._ GENITOURINARY: No dysuria, frequency, or change in urination._ MUSCULOSKELETAL: Reports left arm pain. No neck or back pain._ SKIN: No rash_ NEUROLOGIC: No headache, vertigo, loss of consciousness, or change in strength/ sensation._ ENDOCRINE: No increased thirst. No abnormal weight change_ HEMATOLOGIC/LYMPHATIC: No anemia, easy bleeding, or history of blood clots._ ALLERGIC/IMMUNOLOGIC: No hives or skin allergy._ <Vivek Santos - Last Filed: 06/23/19 03:25> *Physical Exam - Vital Signs Last Vital Signs Temp Pulse Resp BP Pulse Ox 97.6 F 96 H 20 123/89 97 06/22/19 19:42 06/23/19 01:27 06/23/19 01:27 06/23/19 01:27 06/23/19 01:27 <Gale Pulido - Last Filed: 06/23/19 01:44> - Vital Signs Last Vital Signs Temp Pulse Resp BP Pulse Ox 97.6 F 77 20 133/76 100 06/22/19 19:42 06/22/19 19:42 06/22/19 19:42 06/22/19 19:42 06/22/19 19:42 - Physical Exam Comments: GENERAL: Awake, alert, and oriented to person/place/time, in no acute distress_ HEAD: No signs of trauma, normocephalic, atraumatic _ EYES: PERRLA, EOMI, sclera anicteric, conjunctiva clear_ ENT: Hearing grossly normal, nares patent, oropharynx clear without exudates. No uvular deviation. Moist mucosa_ NECK: Normal ROM, supple, no lymphadenopathy, JVD, or masses. No c-spine TTP midline. LUNGS: No distress, speaks in full sentences, clear to auscultation bilaterally _ HEART: Regular rate and rhythm, normal S1 and S2, no murmurs appreciated, peripheral pulses normal and equal bilaterally._ ABDOMEN: Soft, nontender, normoactive bowel sounds. No guarding, no rebound. No masses_ EXTREMITIES: RUE/RLE/LLE: Normal inspection, Normal range of motion, no edema. No clubbing or cyanosis_ LUE: Inspection: No erythema or ecchymosis. TTP mid left arm with area of swelling, no open wounds. Compartments soft and compressible, pain within proportion, range of motion limited 2/2 pain. Sensation: sensation present to light touch m/r/u n Motor: intact AIN/PIN/Ulnar in hand; 4/5 Wrist flex/ext; 4/5 Elbow flex/ext; 4/ 5 Shoulder ABd,Flex Vascular: 2+ radial pulse palpated, BCR all fingers <2 sec. NEUROLOGICAL: Cranial nerves II through XII grossly intact. Normal speech. Left upper/lower intermittent extremity muscle spasms (at baseline). SKIN: Warm, Dry, normal turgor, no rashes or lesions noted_ <Vivek Santos - Last Filed: 06/23/19 03:25> ED Treatment Course - LABORATORY CBC & Chemistry Diagram: 06/22/19 23:55 06/22/19 22:55 - ADDITIONAL ORDERS Additional order review: Laboratory Results 06/22/19 06/22/19 22:55 22:50 Sodium 141 Potassium 4.0 Chloride 109 H Carbon Dioxide 23 Anion Gap 9 BUN 13.4 Creatinine 0.8 Est GFR (CKD-EPI)AfAm 90.94 Est GFR (CKD-EPI)NonAf 78.46 Random Glucose 112 H Calcium 8.3 L Total Bilirubin 0.2 AST 15 ALT 17 Alkaline Phosphatase 139 H Creatine Kinase 211 H Creatine Kinase Index 0.8 CK-MB (CK-2) 1.8 Troponin I < 0.02 Total Protein 6.6 Albumin 3.6 TSH 5.71 H 06/22/19 23:55 RBC 4.41 MCV 88.4 MCHC 32.9 RDW 13.4 MPV 8.7 Neutrophils % 83.0 H D Lymphocytes % 10.2 D Monocytes % 5.7 Eosinophils % 0.8 D Basophils % 0.3 - Medications Given in the ED: ED Medications Discontinued Medications Generic Name Dose Route Start Last Admin Trade Name Freq PRN Reason Stop Dose Admin Cyclobenzaprine HCl 10 mg 06/22/19 23:43 06/23/19 00:16 Flexeril - PO 06/22/19 23:44 10 mg ONCE ONE Administration Morphine Sulfate 4 mg 06/22/19 20:31 06/22/19 20:35 Morphine Injection - IVPUSH 06/22/19 20:32 4 mg ONCE ONE Administration Morphine Sulfate 4 mg 06/22/19 23:13 06/22/19 23:33 Morphine Injection - IVPUSH 06/22/19 23:14 4 mg ONCE ONE Administration Ondansetron HCl 4 mg 06/22/19 22:36 06/22/19 23:05 Zofran Injection IVPUSH 06/22/19 22:37 4 mg ONCE ONE Administration <Gale Pulido - Last Filed: 06/23/19 01:44> - LABORATORY CBC & Chemistry Diagram: 06/22/19 23:55 06/22/19 22:55 - RADIOLOGY Radiology Studies Ordered: Category Date Time Status HEAD CT WITHOUT CONTRAST [CT] Stat CT Scan 06/22/19 20:41 Ordered CHEST PA & LAT [RAD] Stat Radiology 06/22/19 20:59 Ordered CLAVICLE-LEFT SIDE [RAD] Stat Radiology 06/22/19 20:44 Ordered ELBOW-LEFT [RAD] Stat Radiology 06/22/19 20:41 Ordered HUMERUS-LEFT [RAD] Stat Radiology 06/22/19 20:47 Ordered SHOULDER-LEFT [RAD] Stat Radiology 06/22/19 20:48 Ordered - Medications Given in the ED: ED Medications Discontinued Medications Generic Name Dose Route Start Last Admin Trade Name Damien PRN Reason Stop Dose Admin Morphine Sulfate 4 mg 06/22/19 20:31 06/22/19 20:35 Morphine Injection - IVPUSH 06/22/19 20:32 4 mg ONCE ONE Administration <Vivek Santos - Last Filed: 06/23/19 03:25> Medical Decision Making - Medical Decision Making 64F hx of cerebral palsy hypothyroid HLD presenting s/p fall with left arm pain. Area of swelling and pain over left mid arm. -XR left clavicle, shoulder, humerus, elbow -CT head -cbc, cmp, tsh -ekg, cxr, trop 06/22/19 22:24 XR of left humerus shows angulated, displaced transverse mid shaft fx of the left humerus. Call placed to Dr. Cadet (ortho). 06/22/19 23:09 Second call placed to Dr. Cadet (ortho). 06/22/[address] Sosa (ortho instructor business education) who will come in and place the patient 's arm in a cast. 06/22/19 23:21 EKG shows NSR, 88 bpm, no ST elevation/depression, no axis deviation, QTc 484. Labs reviewed. Laboratory Tests 06/22/19 06/22/19 06/22/19 22:50 22:55 23:55 WBC 11.4 H RBC 4.41 Hgb 12.8 Hct 39.0 MCV 88.4 MCH 29.1 MCHC 32.9 RDW 13.4 Plt Count 221 MPV 8.7 Absolute Neuts (auto) 9.4 H Neutrophils % 83.0 H D Lymphocytes % 10.2 D Monocytes % 5.7 Eosinophils % 0.8 D Basophils % 0.3 Nucleated RBC % 0 Sodium 141 Potassium 4.0 Chloride 109 H Carbon Dioxide 23 Anion Gap 9 BUN 13.4 Creatinine 0.8 Est GFR (CKD-EPI)AfAm 90.94 Est GFR (CKD-EPI)NonAf 78.46 Random Glucose 112 H Calcium 8.3 L Total Bilirubin 0.2 AST 15 ALT 17 Alkaline Phosphatase 139 H Creatine Kinase 211 H Creatine Kinase Index 0.8 CK-MB (CK-2) 1.8 Troponin I < 0.02 Total Protein 6.6 Albumin 3.6 TSH 5.71 H 06/23/19 02:30 Self read of post splint films show improved angulation and reduction of the transverse mid-shaft fx of the humerus. Plan to d/c home with oxycodone, f/u ortho. <Vivek Santos - Last Filed: 06/23/19 03:25> Discharge <JacksonugoGale - Last Filed: 06/23/19 01:44> - Discharge Information Problems reviewed: Yes - Admission No <Vivek Santos - Last Filed: 06/23/19 03:25> - Discharge Information Clinical Impression/Diagnosis: Left humeral fracture Qualifiers: Encounter type: initial encounter Humerus Location: shaft Fracture type: closed Fracture morphology: transverse Fracture alignment: displaced Qualified Code(s): S42.322A - Displaced transverse fracture of shaft of humerus, left arm , initial encounter for closed fracture Condition: Stable Disposition: HOME - Additional Discharge Information Prescriptions: Oxycodone HCl/Acetaminophen [Percocet 5-325 mg Tablet] 2 tab PO Q4H PRN #20 tablet MDD 6 PRN Reason: Pain - Follow up/Referral Referrals: Alice Gooden MD [Primary Care Provider] - Romulo Sosa DO [Staff Physician] - - Patient Discharge Instructions Patient Printed Discharge Instructions: Humeral Shaft Fracture Additional Instructions: you should follow up [facility] orthopedist. call to schedule. return for any concerns , numbness worsening pain or skin changes .you should follow up with DR Sosa or dr cadet. see referral information for dr nelson. you can take ibuprofen 600 mg every 8 hrs as needed for pain. - Post Discharge Activity
[2019-06-22] MEDS ORDERED: ONDANSETRON 4 MG/2 ML VIAL IVPUSH ONE (22:36)
[2019-06-22] MEDS ORDERED: ONDANSETRON 4 MG/2 ML VIAL ONE (23:02)
[2019-06-22] MEDS ORDERED: CYCLOBENZAPRINE HCL 10 MG TABLET (FP) PO ONE (23:43)
[2019-06-22 23:46] LABS: ALBUMIN 3.6 g/dl (3.4-5.0); BILIRUBIN,TOTAL 0.2 mg/dL (0.2-1); BLOOD UREA NITROGEN 13.4 mg/dL (7-18); CALCIUM 8.3 mg/dL (8.5-10.1); CREATININE 0.8 mg/dL (0.55-1.3); TOT PROT 6.6 g/dl (6.4-8.2)
[2019-06-23 00:05] LABS: BASO % 0.3 % (0-2.0); EOS % 0.8 % (0-4.5); HEMOGLOBIN 12.8 GM/dL (10.7-15.3); LYMPH % 10.2 % (8-40); MCH 29.1 pg (25.7-33.7); MCHC 32.9 g/dl (32.0-36.0); MEAN CELL VOLUME 88.4 fl (80-96); MEAN PLT VOLUME 8.7 fl (7.5-11.1); MONO % 5.7 % (3.8-10.2); PLATELET COUNT 221 K/MM3 (134-434); RBC 4.41 M/mm3 (3.60-5.2); RDW 13.4 % (11.6-15.6); WHITE BLOOD COUNT 11.4 K/mm3 (4.0-10.0)
[2019-06-23] MEDS ORDERED: CYCLOBENZAPRINE HCL 10 MG TABLET (FP) ONE (00:14)
--- NOTE | 2019-06-23 00:59 | CONSULT ---
Consult - text type - Consultation Consultation Note: ORTHOPEDIC SURGERY CONSULTATION NOTE Department of Orthopedic Surgery HISTORY OF PRESENT ILLNESS Justine Rivera is a 64 year old right hand dominant female who presents to [facility] ED with left arm pain after a mechanical fall. She has a past medical history significant for CP with residual left upper and lower extremity dysfunction. The orthopedic service was consulted for humeral shaft fracture. The injury occurred today. The patient notes pain to the left arm. Denies any other injuries. Denies numbness, tingling or other constitutional complaints. Denies tobacco use, drug use, alcohol abuse. The patient lives with family and uses no assistive devices at baseline. Past Medical History [employer] Other Cardio/Vascular Hyperlipdemia Pulmonary Asthma Social History Smoking history Never smoked Aproximately how many 0 cigarettes per day If you are a former smoker, 20YRS AGO when did you quit? Hx Alcohol Use No ADL Independent History of Recent Travel No Allergies Allergy/AdvReac Type Severity Reaction Status Date / Time Penicillins Allergy Severe Difficulty Verified 06/22/19 19:45 Breathing Vital Signs (last) Temp Pulse Resp BP Pulse Ox 97.6 F 77 20 133/76 100 06/22/19 19:42 06/22/19 19:42 06/22/19 19:42 06/22/19 19:42 06/22/19 19:42 Intake and Output 06/21/19 06/22/19 06/23/19 23:59 23:59 23:59 Other: Weight 133 lb Height 5 ft 2 in Body Mass Index (BMI) 24.3 Weight Measurement Method Est/Stated by Patient Laboratory 06/22/19 23:55 06/22/19 22:55 FAMILY HISTORY Reviewed and noncontributory REVIEW OF SYMPTOMS A twelve-point review of systems was performed and was negative except as noted in HPI. PHYSICAL EXAM Constitutional: Alert and oriented to person, place, and time. Appears well- developed and well-nourished. No acute distress, appropriate mood and affect. Right Upper Extremity: No tenderness to palpation. Full passive and active ROM, free from pain. Left Upper Extremity: Left arm swelling. Compartments soft and compressible. Skin warm, dry, and intact; no lesions, rashes or ulcers noted. Muscle mass equal and symmetric to contralateral side. No atrophy noted. No masses or effusions noted. Tender to palpation at left arm; nontender throughout rest of extremity. Limited ROM left wrist and fingers secondary to wrist fusion and contractures. SILT distally; 2+ radial pulses; Cap refill brisk. Right Lower Extremity: No tenderness to palpation. Painless ROM, free from pain. SILT distally; 2+ DP pulses; Cap refill brisk. Left Lower Extremity: No tenderness to palpation. Painless ROM hip and knee, free from pain. Limited ROM left ankle secondary to fusion. SILT distally; 2+ DP pulses; Cap refill brisk. IMAGING I personally reviewed all radiographs. They demonstrate a mid-shaft humeral shaft fracture with varus angulation. ASSESSMENT AND PLAN Justine Rivera is a 64 year old female presenting status post mechanical fall with a left sided humeral shaft fracture. We have reviewed the imaging and clinical findings in detail, as well as their potential implications. After appropriate informed discussion, the patient was placed in a well-padded coaptation splint. Once the swelling subsides, the patient will be converted to a Valladares fracture brace. Patient was instructed regarding: non weight bearing on fractured side. signs and symptoms of compartment syndrome and need to seek immediate care should new onset numbness, tingling, or significantly increasing pain occur. maintain strict elevation above the level of the heart for the next 3-4 days. keeping the splint clean and dry. avoiding NSAID medications. Procedure Note; Closed Reduction Left Humeral Shaft Fracture with Application of Coaptation Splint After appropriate informed discussion, the left arm was manipulated to align the fracture in a neutral alignment. A well padded coaptation splint was then applied and molded to maintain the reduction. The patient tolerated the procedure well and there were no changes in her neurovascular status. Post reduction radiographs show improved alignment of the fracture. All questions were answered. Thank you for involving our team in the care of this patient. Please have patient follow up in 1 week [phone].
--- NOTE | 2019-06-23 01:21 | PDOC ---
Documentation entered by Vinh Bustos SCRIBE, acting as scribe for Gale Pulido MD. Gale Pulido MD: This documentation has been prepared by the Akash pimentel Daniel, SCRIBE, under my direction and personally reviewed by me in its entirety. I confirm that the documentation accurately reflects all work, treatment, procedures, and medical decision making performed by me. Attending Attestation - Resident Resident Name: Vivek Santos - ED Attending Attestation I have performed the following: I have examined & evaluated the patient, The case was reviewed & discussed with the resident, I agree w/resident's findings & plan, Exceptions are as noted - HPI HPI: 06/22/19 20:53 The patient is a 64 year old female with a past medical history of cerebral palsy (left upper extremity muscle spasm), hypothyroidism and HLD, here today for evaluation of left arm pain s/p fall. Patient reports when she was out tonight she tripped and fell and landed on her left arm. she was at bingo night. Witnesses report that the patient hit her head but the patient is unsure. Patient denies any loss of consciousness. Patient also reports that she hasn't eaten since this morning. Patient denies palpitations.c/o left arm pain, no cp no palpitations. no f/c no other complaints. Allergies: penicillins PCP: Alice Gooden 06/23/19 01:16 - Physicial Exam PE: 06/23/19 01:17 awake alert head atraumatic. no cervical spine tenderness. lungs clear bilat heart rrr no mrg abd soft nt ntd. ext wwp. left upper ext contusion and pain over upper arm. 2+ distal pulses . senstaion intact. n/v intact. lower ext nt - Medical Decision Making 06/23/19 01:18 64 yo c/o left upper arm pain s/p fall unsure loc. differential fracgure. shoulder injury. head injury. plan ct head. neck. xray arm shoulder pelvis. left humeral fx noted. ct head negative. for ich or other path. . ortho eval pt Dr Eaton, splinted. will dc home fu with ortho
[2019-06-23 01:29] VITALS: BP 123/89; PULSE 96
--- NOTE | 2019-06-24 20:12 | EKG ---
Test Reason : Blood Pressure : / mmHG Vent. Rate : 088 BPM Atrial Rate : 088 BPM P-R Int : 186 ms QRS Dur : 086 ms QT Int : 400 ms P-R-T Axes : 061 020 042 degrees QTc Int : 484 ms NORMAL SINUS RHYTHM NORMAL ECG WHEN COMPARED WITH ECG OF 16-JUN-2004 16:11, NO SIGNIFICANT CHANGE WAS FOUND Confirmed by ELISABETH PLATA MD ([id number]) on 06/24/2019 8:12:04 PM Referred By: Confirmed By:ELISABETH PLATA MD
== END 2019-06-23 02:40 | disposition home or self-care (01) ==
LOC: JER 19:29
PROC: 0PSGXZZ Reposition Left Humeral Shaft, External Approach (ICD-10-PCS; principal; 2019-06-22)
PROC: 3E033NZ Introduction of Analgesics, Hypnotics, Sedatives into Peripheral Vein, Percutaneous Approach (ICD-10-PCS; 2019-06-22)
PROC: 3E033NZ Introduction of Analgesics, Hypnotics, Sedatives into Peripheral Vein, Percutaneous Approach (ICD-10-PCS; 2019-06-22)
PROC: 3E033GC Introduction of Other Therapeutic Substance into Peripheral Vein, Percutaneous Approach (ICD-10-PCS; 2019-06-22)
DX: S42.392A Other fracture of shaft of left humerus, initial encounter for closed fracture (principal); W18.39XA Other fall on same level, initial encounter; Y93.89 Activity, other specified; Y92.89 Other specified places as the place of occurrence of the external cause; Y99.8 Other external cause status; G80.8 Other cerebral palsy
CPT/HCPCS: 24505; 36415; 70450-TC; 71046-TC-FY; 73000-TC-LT-FY; 73030-TC-LT-FY; 73060-TC-LT-FY; 73070-TC-LT-FY; 80053; 82550; 82553; 84443; 84484; 85025; 93005; 93010; 96374; 96375; 96376; 99283-25

== ENCOUNTER 2022-09-12 14:58 | Emergency (ER) | payer OTHER ==
[2022-09-12] MEDS ORDERED: diazePAM 5 MG TABLET PO ONE (15:25)
[2022-09-12] MEDS ORDERED: KETOROLAC TROMETHAMINE 60 MG/2 ML VIAL IM ONE (15:25)
[2022-09-12] MEDS ORDERED: LIDOCAINE 5% TOPICAL PATCH TP ONE (15:25)
[2022-09-12 15:31] VITALS: BP 152/86; PULSE 88; RESP 18; TEMP 98.3; BMI 31.2
[2022-09-12] MEDS ORDERED: KETOROLAC TROMETHAMINE 60 MG/2 ML VIAL ONE (15:32)
[2022-09-12] MEDS ORDERED: diazePAM 5 MG TABLET ONE (15:32)
[2022-09-12] MEDS ORDERED: LIDOCAINE 5% TOPICAL PATCH ONE ×2 (15:32→21:22)
[2022-09-12] MEDS ORDERED: predniSONE 20 MG TABLET (UD) PO ONE (16:51)
[2022-09-12] MEDS ORDERED: predniSONE 20 MG TABLET (UD) ONE (17:14)
[2022-09-12] MEDS ORDERED: ONDANSETRON 4 MG/2 ML VIAL IVPUSH ONE (18:07)
[2022-09-12] MEDS ORDERED: PANTOPRAZOLE SODIUM 40 MG VIAL IVPUSH ONE (18:07)
[2022-09-12] MEDS ORDERED: BUPIVACAINE HCL/PF 0.5% (5MG/ML) 10 ML VIAL MM ONE (21:34)
[2022-09-12] MEDS ORDERED: DEXAMETHASONE SOD PHOSPHATE 10 MG/1 ML VIAL IM ONE (21:35)
[2022-09-12] MEDS ORDERED: LIDOCAINE PATCH REMOVAL MC SCH (22:00)
== END 2022-09-12 22:08 | disposition home or self-care (01) ==
LOC: FER 14:58
PROC: 3E0233Z Introduction of Anti-inflammatory into Muscle, Percutaneous Approach (ICD-10-PCS; principal; 2022-09-12)
PROC: 3E0233Z Introduction of Anti-inflammatory into Muscle, Percutaneous Approach (ICD-10-PCS; 2022-09-12)
DX: M62.838 Other muscle spasm (principal); M79.602 Pain in left arm
CPT/HCPCS: 0241U-QW; 70450-TC; 72125-TC; 72141-TC; 99285-25; J1100